=== PATIENT | male | born 1975 | race Caucasian/White ===

== ENCOUNTER 2021-02-24 05:00 | Emergency (ER) | payer SELFPAY ==
[~2021-02-24] VITALS: Ht 175.3 cm; Wt 77.1 kg
[2021-02-24 05:00] VITALS: BP 138/90
--- NOTE | 2021-02-24 05:00 | NUR ---
to bed ambulatory with
[2021-02-24] MEDS: LIDOCAINE 2% 1000 MG/50 ML VIAL INJ ONE (05:12)
--- NOTE | 2021-02-24 05:14 | NUR ---
Dr. Gilman examining patient.
[2021-02-24] MEDS ORDERED: OFLO5SOL27 LEFT EAR (05:36)
[2021-02-24 05:48] VITALS: BP 138/90
--- NOTE | 2021-02-24 05:48 | NUR ---
Patient discharged with v/s stable. Written and verbal after care instructions given and explained. Patient alert, oriented and verbalized understanding of instructions. Ambulatory with steady gait. All questions addressed prior to discharge. ID band removed. Patient advised to follow up with PMD. Rx of ofloxacin given. Patient educated on indication of medication including possible reaction and side effects. Opportunity to ask questions provided and answered.
== END 2021-02-24 05:48 | disposition home or self-care (01) ==
LOC: MED 05:00
DX: T16.2XXA Foreign body in left ear, initial encounter (principal); Y93.89 Activity, other specified; Y92.89 Other specified places as the place of occurrence of the external cause; Y99.8 Other external cause status
CPT/HCPCS: 69200; 99284; J2001